=== PATIENT | female | born 1940 | race Caucasian/White ===

== ENCOUNTER 2022-01-16 16:06 | Inpatient (IN) ==
[2022-01-16 17:05] LABS: Basophils # (auto) 0.06 K/uL (0-0.2); Basophils % (auto) 0.7 %; Eosinophils # (auto) 0.14 K/uL (0-0.50); Eosinophils % (auto) 1.6 %; Hematocrit (blood only) 35.3 % (34.1-44.9); Hemoglobin 11.9 g/dl (12.0-16.0); Immature Granulocytes # (auto) 0.04 K/uL (0.00-0.02); Immature Granulocytes % (auto) 0.5 %; Lymphocytes # (auto) 0.89 K/uL (1.2-3.4); Lymphocytes % (auto) 10.2 %; Mean Corpuscular Hemoglobin 32.4 pg (25.0-34.0); Mean Corpuscular Hgb Conc 33.7 g/dL (32.0-36.0); Mean Corpuscular Volume 96.2 fL (80.0-100.0); Mean Platelet Volume 10.1 fL (9.4-12.3); Monocytes # (auto) 0.84 K/uL (0.24-0.82); Monocytes % (auto) 9.6 %; Neutrophils # (auto) 6.74 K/uL (1.4-6.5); Neutrophils % (auto) 77.4 %; Platelet Count 281 K/uL (130-400); RDW Coefficient of Variation 13.3 % (11.5-14.5); RDW Standard Deviation 47.7 fL (36.4-46.3); Red Blood Count 3.67 M/uL (3.93-5.22); White Blood Count 8.71 K/ul (4.8-10.8)
[2022-01-16 17:26] LABS: Albumin Globulin Ratio 0.8 (0.9-2); Albumin Level 3.5 gm/dl (3.4-5.0); BUN Creatinine Ratio 19.3 (10-20); Bilirubin,Total 1.4 mg/dl (0.2-1.0); Calcium 9.3 mg/dl (8.5-10.1); Creatinine Clr Calc Pharmacy 77.7 ml/min; Est GFR (African American) 99.4 ml/min; Est GFR (Non-African American) 85.7 ml/min; Globulin 4.4 gm/dl (2.5-4.0); Potassium 3.7 mmol/L (3.5-5.1); Total Protein 7.9 gm/dl (6.0-8.3)
--- NOTE | 2022-01-16 18:55 | Emergency Department Note ---
Impression & Plan Abdominal pain ADMIT ED Provider Note HPI: The patient is an 81-year-old female who presents emergency department with a chief complaint of right lower quadrant abdominal pain. Patient states that her pain is been constant for the past several days. Patient mentioned the symptoms to her primary care doctor's office and an outpatient CT scan of the abdomen pelvis was ordered for her to be done today at [facility]. Patient states she was contacted and advised to come to the emergency department based off the results, patient is unsure however of what the results showed. On arrival here to the ED the patient is hemodynamically stable, she is in no acute distress on my initial evaluation and she is requesting to go home. Patient denies any vomiting, denies any diarrhea, denies any chest pain or shortness of breath. ROS: -GI: Right-sided abdominal pain. *10 point review systems was conducted and is otherwise negative unless stated a dena *Outpatient medications and allergy history reviewed PE: General: Alert HEENT: Normocephalic, trachea midline Eyes: Extraocular eye movement is intact, no scleral erythema Pulmonary: Clear to auscultation bilaterally, no wheezing Cardio: Regular rate and rhythm GI: Abdomen is soft, moderate tenderness to palpation in the area of the right lower quadrant without any guarding or rigidity : No suprapubic tenderness MSK: No evidence of trauma or malformation of the extremities, no edema Skin: No evidence of rash Neuro: Alert, no focal deficits Psychiatric: Cooperative cardiac monitor technician: - An order was placed for continuous cardiac monitoring - Patient was noted to be in sinus rhythm with a rate of 65 Interventions provided in ED: -IV Zosyn Medical Decision Making: Patient presented to the emergency department with some right-sided abdominal pain for the past several days, she had outpatient CT imaging done today at [facility]. Patient does complain of some mild abdominal discomfort on arrival but does not have any signs or symptoms of peritonitis, no rigidity on exam. Lab work does not show any critical findings, no leukocytosis, slight anemia at 11.9, no critical electrolyte abnormalities, no transaminitis. Case management did obtain the outpatient CT abdomen and pelvis interpretation for me and I was able to review it, there is concern for possibility of a ileocecal stricture with questionable mass in this location versus distention or inflammation, also mentions a mildly distended appendix with wall thickening, early appendicitis could not be excluded. Surgical consult was therefore recommended and this is why the patient was referred to the emergency room. I did consult general surgery and the patient was evaluated at the bedside by JOSE Gillette, and case was staffed with the on-call attending physician, Dr. Dickson. At this time plan will be for admission to the hospitalist service with initiation of IV antibiotics, possibility exists that the patient may require colonoscopy prior to this procedure being performed if determined necessary secondary to rule out a mass is the source of the stricture near the i leocecal junction. Patient is in agreement for admission and she was admitted to the hospitalist [facility] through [facility] in stable condition for subspecialty consultation and further care. Diagnosis: 1. Right lower quadrant abdominal pain, acute 2. Possible early acute appendicitis on CT imaging 3. 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 Hiatal hernia Hypertension Hypothyroidism Migraine HX Surgical History History of adenoidectomy History of ankle surgery REMOVAL BONE CHIP History of eyelid surgery History of tonsillectomy History of total knee replacement R/L Nausea and vomiting after administration of anesthetic agent Social History Smoking Status: Never smoker Second Hand Exposure: Yes ( A CHILD); Hx Alcohol Use: No Hx Substance Use: No Preferred Language: Bangladeshi Communication Ability: Effective Health Care Social Worker Required: No Beliefs That Will Affect Care: None Current Living Situation: Alone Feels Safe at Home: Yes Assistive Devices: Cane and Glasses Allergies Allergies Allergy/AdvReac Type Severity Reaction Status Date / Time Sulfa (Sulfonamide Allergy Severe RASH, FELT Verified 12/28/19 07:26 Antibiotics) ILL Home Meds Home Medications Medication Instructions Recorded Confirmed atenolol 50 mg tablet 50 mg PO QAM 12/17/19 01/16/22 cholecalciferol (vitamin D3) 10 10 mcg PO QAM 12/17/19 01/16/22 mcg (400 unit) capsule (Vitamin D3) lisinopril 40 mg tablet 40 mg PO HS 12/17/19 01/16/22 ascorbic acid (vitamin C) 500 mg 500 mg PO DAILY 01/16/22 01/16/22 tablet (Vitamin C) ferrous sulfate 325 mg (65 mg 325 mg PO Q OTHER DAY 01/16/22 01/16/22 iron) tablet levothyroxine 112 mcg tablet 112 mcg PO DAILY 01/16/22 01/16/22 Results & Data (ED) Vital Signs Vital Signs - 24 hr 01/16/22 16:18 01/16/22 18:40 01/16/22 20:59 Temperature 36.4 C L Temperature Source Temporal Artery Scan Pulse Rate 73 Pulse Rate [Apical] 76 66 Pulse Rhythm Regular Pulse Rhythm [Apical] Regular Pulse Strength Normal Pulse Strength [Apical] Normal Respiratory Rate 16 16 18 Respiratory Effort / Characteristics Non-Labored Spontaneous Non-Labored Non-Labored Spontaneous Respiratory Depth Normal Normal Normal Respiratory Pattern Regular Regular Blood Pressure 175/84 H Blood Pressure [Left Arm] 162/85 H 161/80 H Blood Pressure Mean 114 Blood Pressure Mean [Left Arm] 110 107 Blood Pressure Position [Left Arm] Lying Semi-fowlers Pulse Oximetry 98 95 98 Oxygen Delivery Method Room Air Room Air Room Air Sepsis Recent Fever Within 48 Hours No Sepsis New/Unexplained Change in Mental Status No Sepsis Action Taken by Nursing No Action Required 01/16/22 22:00 01/16/22 22:14 Temperature Temperature Source Pulse Rate 63 Pulse Rate [Apical] 63 Pulse Rhythm Pulse Rhythm [Apical] Regular Pulse Strength Pulse Strength [Apical] Normal Respiratory Rate 18 18 Respiratory Effort / Characteristics Non-Labored Spontaneous Respiratory Depth Normal Respiratory Pattern Regular Blood Pressure 146/88 H Blood Pressure [Left Arm] 146/88 H Blood Pressure Mean Blood Pressure Mean [Left Arm] 107 Blood Pressure Position [Left Arm] Semi-fowlers Pulse Oximetry 97 97 Oxygen Delivery Method Room Air Room Air Sepsis Recent Fever Within 48 Hours Sepsis New/Unexplained Change in Mental Status Sepsis Action Taken by Nursing Laboratory Data Result diagrams: 01/16/22 16:51 01/16/22 16:51 Lab Results 01/16/22 01/16/22 01/16/22 Range/Units 16:51 16:51 16:51 WBC 8.71 (4.8-10.8) K/ul RBC 3.67 L (3.93-5.22) M/uL Hgb 11.9 L (12.0-16.0) g/dl Hct 35.3 (34.1-44.9) % MCV 96.2 (80.0-100.0) fL MCH 32.4 (25.0-34.0) pg MCHC 33.7 (32.0-36.0) g/dL RDW Std Deviation 47.7 H (36.4-46.3) fL RDW Coeff of Kelley 13.3 (11.5-14.5) % Plt Count 281 (130-400) K/uL MPV 10.1 (9.4-12.3) fL Immature Gran % (Auto) 0.5 % Neut % (Auto) 77.4 % Lymph % (Auto) 10.2 % [place] % (Auto) 9.6 % Eos % (Auto) 1.6 % Baso % (Auto) 0.7 % Neut # (Auto) 6.74 H (1.4-6.5) K/uL Lymph # (Auto) 0.89 L (1.2-3.4) K/uL [place] # (Auto) 0.84 H (0.24-0.82) K/uL Eos # (Auto) 0.14 (0-0.50) K/uL Baso # (Auto) 0.06 (0-0.2) K/uL Immature Gran # (Auto) 0.04 H (0.00-0.02) K/uL Sodium 132 L (136-145) mmol/L Potassium 3.7 (3.5-5.1) mmol/L Chloride 100 (98-107) mmol/L Carbon Dioxide 23 (21-32) mmol/L Anion Gap 9 (3-11) BUN 11 (6-23) mg/dl Creatinine 0.57 L (0.6-1.2) mg/dl Est Cr Clr Drug Dosing 77.7 ml/min Est GFR ( Amer) 99.4 ml/min Est GFR (Non-Af Amer) 85.7 ml/min BUN/Creatinine Ratio 19.3 (10-20) Glucose 81 (70-99(Fasting)) mg/dl Calcium 9.3 (8.5-10.1) mg/dl Magnesium 1.7 (1.7-2.4) mg/dl Total Bilirubin 1.4 H (0.2-1.0) mg/dl AST 23 (13-39) U/L ALT 16 (7-52) U/L Alkaline Phosphatase 97 (34-104) U/L Total Protein 7.9 (6.0-8.3) gm/dl Albumin 3.5 (3.4-5.0) gm/dl Globulin 4.4 H (2.5-4.0) gm/dl Albumin/Globulin Ratio 0.8 L (0.9-2) Lipase 16 (11-82) U/L SARS-CoV-2, RNA, NAAT (NEGATIVE) 01/16/22 Range/Units 19:31 WBC (4.8-10.8) K/ul RBC (3.93-5.22) M/uL Hgb (12.0-16.0) g/dl Hct (34.1-44.9) % MCV (80.0-100.0) fL MCH (25.0-34.0) pg MCHC (32.0-36.0) g/dL RDW Std Deviation (36.4-46.3) fL RDW Coeff of Kelley (11.5-14.5) % Plt Count (130-400) K/uL MPV (9.4-12.3) fL Immature Gran % (Auto) % Neut % (Auto) % Lymph % (Auto) % [place] % (Auto) % Eos % (Auto) % Baso % (Auto) % Neut # (Auto) (1.4-6.5) K/uL Lymph # (Auto) (1.2-3.4) K/uL [place] # (Auto) (0.24-0.82) K/uL Eos # (Auto) (0-0.50) K/uL Baso # (Auto) (0-0.2) K/uL Immature Gran # (Auto) (0.00-0.02) K/uL Sodium (136-145) mmol/L Potassium (3.5-5.1) mmol/L Chloride (98-107) mmol/L Carbon Dioxide (21-32) mmol/L Anion Gap (3-11) BUN (6-23) mg/dl Creatinine (0.6-1.2) mg/dl Est Cr Clr Drug Dosing ml/min Est GFR ( Amer) ml/min Est GFR (Non-Af Amer) ml/min BUN/Creatinine Ratio (10-20) Glucose (70-99(Fasting)) mg/dl Calcium (8.5-10.1) mg/dl Magnesium (1.7-2.4) mg/dl Total Bilirubin (0.2-1.0) mg/dl AST (13-39) U/L ALT (7-52) U/L Alkaline Phosphatase (34-104) U/L Total Protein (6.0-8.3) gm/dl Albumin (3.4-5.0) gm/dl Globulin (2.5-4.0) gm/dl Albumin/Globulin Ratio (0.9-2) Lipase (11-82) U/L SARS-CoV-2, RNA, NAAT NEGATIVE (NEGATIVE) Administered Medications Sodium Chloride (Nss 1000ml) 1,000 mls @ 60 mls/hr IV .[id number] ONE Stop: 01/17/22 13:18 Last Admin: 01/16/22 20:55 Dose: 60 mls/hr Documented By: JOSEPH Discontinued Medications Piperacillin Sod/Tazobactam (Sod 3.375 gm/ Dextrose) 100 ml in 115 mls @ 230 mls/hr IV NOW STA Stop: 01/16/22 20:16 Last Infusion: 01/16/22 21:30 Dose: 0 mls/hr Documented By: Admin: 01/16/22 20:56 Dose: 230 mls/hr Documented By: JOSEPH Lisinopril (Lisinopril 40 Mg Tab) 40 mg PO NOW STA Stop: 01/16/22 19:51 Last Admin: 01/16/22 20:55 Dose: 40 mg Documented By: JOSEPH Imaging Data Radiologist's Impression: Chest X-Ray 01/16/22 19:51 XR chest 1V portable HISTORY: hyponatremia COMPARISON: None. FINDINGS: No pneumothorax. No pleural effusions. The cardiac silhouette is mildly enlarged. The upper lung zones are clear. No evidence for pulmonary edema. Bibasilar interstitial thickening is noted. Suspect a small hiatus hernia. Small patchy densities within the left lung base. Advanced degenerative changes within the bilateral shoulders. Mild S-shaped scoliosis of the thoracolumbar spine. Calcification within the aortic knob. Mild gaseous distention of the visualized bowel within the upper abdomen. IMPRESSION: 1. Mild cardiomegaly. No evidence for pulmonary edema. 2. Small patchy density at the left lung base which may represent atelectasis or developing pneumonia. 3. Possible small hiatus hernia. 5. Mild gaseous distention of the visualized bowel within the upper abdomen. ACT 112: Negative or not required by law. Electronically signed by: Edwardo Cheung M.D. 01/16/2022 9:06 PM Discharge Plan Visit Data Chief Complaint: Abdominal Pain Stated Complaint: REFERRED BY DOC, PAIN IN ABDOMIN ED Provider: Ceferino Dubose Discharge Problem: Abdominal pain Patient Disposition: Admitted As Inpatient Forms [facility] Prescriptions Prescriptions: No Action lisinopril 40 mg Tablet 40 mg PO HS atenolol 50 mg Tablet 50 mg PO QAM cholecalciferol (vitamin D3) [Vitamin D3] 10 mcg (400 unit) Capsule 10 mcg PO QAM ascorbic acid (vitamin C) [Vitamin C] 500 mg Tablet 500 mg PO DAILY ferrous sulfate 325 mg (65 mg iron) Tablet 325 mg PO Q OTHER DAY levothyroxine 112 mcg tablet 112 mcg PO DAILY Referrals Referrals: PCP,NO [Physician] - : Abdominal pain Qualifiers: Abdominal location: right lower quadrant Qualified Code(s): R10.31 - Right lower quadrant pain
--- NOTE | 2022-01-16 19:43 | Surgery Consultation ---
Date of Consultation January 16, 2022 Assessment & Plan (1) Abdominal pain: The etiology of patient's abdominal pain has not been clearly delineated at this point: Although acute appendicitis has not entirely been excluded, there is concern the patient may have an underlying cecal mass on CT scan. We therefore recommend proceeding as follows: Admit patient to hospital (she will be admitted by the [facility] service) Provide IV fluid for hydration Provide analgesics Provide antiemetics Follow serial labs Initiate antibiotics. Zosyn has been initiated by the treating clinician in the emergency department Due to concerns for potential cecal mass, I feel a gastroenterology cons ultation is warranted with the potential of having the patient undergo a colonoscopy prior to entertaining any surgical intervention Once gastroenterology input has been obtained, will determine if patient will undergo colonoscopy and following results of this we will determine if and what type of operation patient may benefit from Additional recommendations will be made after GI consultation and potential colonoscopy is being performed History of Present Illness Reason for Consultation: Abdominal pain History of Present Illness This is an 81-year-old female who presented to [facility] emergency department at the recommendation of her primary care provider due to concern for acute appendicitis. The patient notes that she is having on and off abdominal pain for approximately 5 days. With her abdominal pain the patient does not report any modifying factors. She does not report any nausea or vomiting. She denies any fevers, shakes, or chills. She has had prior abdominal surgeries in the form of a ventral hernia repair utilizing mesh. Be cause her symptomatology persisted she was seen by her primary care team where an outpatient CT scan was performed with results noted below. Because of these results she was referred to the emergency department. The patient does not report any weight loss. She does not report any decreased appetite, and in fact at the time of my interview reported that she was hungry. The patient did undergo a CT scan of the abdomen pelvis which was performed at [facility]. This CAT scan was reviewed by myself. This did show some fat stranding and fluid in the right pelvis around the cecal area likely due to inflammatory changes. There is a focal narrowing at the area of the cecum near the ileocecal junction which was felt to be potentially related to incomplete distention or inflammation, however an underlying neoplastic process was difficult to exclude and a follow-up colonoscopy was recommended. There was a mildly distended appendix with some wall thickening. An early a ppendicitis could not be excluded on the study. Patient did have labs performed which included a CBC were white blood cell count was normal. Her hemoglobin was 11.9 with a normal hematocrit. Platelet count was within normal range. Chemistry profile showed sodium was 132. Potassium and BUN were normal. Her creatinine was nonelevated at 0.57. Patient did have a slight elevation of her bilirubin at 1.4. Her transaminases and alkaline phosphatase were nonelevated. Lipase was nonelevated. The patient reports that she leads an active lifestyle. She notes that she can easily walk up 2 flights of steps without any chest pain or shortness of breath. At the time of my interview she was resting comfortably in bed and she was in no distress. She did note upon my arrival that her pain had nearly completely resolved. Allergies Allergy/AdvReac Type Severity Reaction Status Date / Time Sulfa (Sulfonamide Allergy Severe RASH, FELT Verified 12/28/19 07:26 Antibiotics) ILL Home Medications Medication Instructions Recorded Confirmed Type atenolol 50 mg tablet 50 mg PO QAM 12/17/19 01/16/22 History cholecalciferol (vitamin D3) 10 10 mcg PO QAM 12/17/19 01/16/22 History mcg (400 unit) capsule (Vitamin D3) lisinopril 40 mg tablet 40 mg PO HS 12/17/19 01/16/22 History ascorbic acid (vitamin C) 500 mg 500 mg PO DAILY 01/16/22 01/16/22 History tablet (Vitamin C) ferrous sulfate 325 mg (65 mg 325 mg PO Q OTHER DAY 01/16/22 01/16/22 History iron) tablet levothyroxine 112 mcg tablet 112 mcg PO DAILY 01/16/22 01/16/22 History Patient History Medical History Arthritis 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 Hiatal hernia Hypertension Hypothyroidism Migraine HX Surgical History History of adenoidectomy History of ankle surgery REMOVAL BONE CHIP History of eyelid surgery History of tonsillectomy History of total knee replacement R/L Nausea and vomiting after administration of anesthetic agent Social History (Reviewed 01/16/22 @ 20:09 by LAYLA Vidal Smoking Status: Never smoker Second Hand Exposure: Yes ( A CHILD); Hx Alcohol Use: No Hx Substance Use: No Preferred Language: Cypriot Communication Ability: Effective Fish Bin Tender Required: No Beliefs That Will Affect Care: None Current Living Situation: Alone Other Information That Helps Us Care for You: No Feels Safe at Home: Yes Safety Concerns: Feels Safe At This Time Assistive Devices: Cane, Glasses and Hearing Aid - Bilateral Review of Systems Constitutional: no fever and no chills Eyes: no eye pain Ear, Nose, Mouth, Throat: no ear pain Respiratory: no cough and no dyspnea Cardiovascular: no chest pain Gastrointestinal: + abdominal pain (Resolved at the time of my exam); no nausea and no vomiting Genitourinary: no dysuria Musculoskeletal: no back pain Integumentary: no rash Neurologic: no localized weakness Physical Exam Constitutional: WD/WN, vitals as above Eyes: no conjunctival abnormality Wears glasses ENMT: Ears: no hearing impairment and no external ear abnormality Mouth: no oropharynx abnormality Neck: trachea midline Respiratory: normal respiratory effort; no respiratory distress and no labored breathing Cardiovascular: Rate/Rhythm: regular rate and regular rhythm Gastrointestinal (Abdomen): Abdomen is soft, nonrigid, nondistended. There is no rebound tenderness or guarding. The patient had minimal pain with palpation in the right lower quadrant the time of my exam. Patient did have a well-healed incision near her umbilicus from previous herniorrhaphy Musculoskeletal: No calf tenderness Skin: no rashes Neurologic: moves all extremities Psychiatric: A+Ox3, euthymic affect Results & Data ([facility]) Vital Signs (Past 12 Hours) Vital Signs Temp Pulse Pulse Resp BP BP Pulse Ox 01/16/22 18:40 76 16 162/85 H 95 01/16/22 16:18 36.4 C L 73 16 175/84 H 98 O2 Del Method 01/16/22 18:40 Room Air 01/16/22 16:18 Room Air PG Care Time/CCT Total # of Minutes Spent Total Time Spent with Patient: Total time spent is greater than 50% in coordination of care (as documented) at patient's floor/unit and/or counseling patient: Coding Level of Care Code 34196 Inpt Consult Level 5 Diagnoses Abdominal pain R10.9
[2022-01-16] MEDS ORDERED: PIPERACILLIN/TAZOBACTAM 3.375 GM in DEXTROSE 5% 100 ML/100 ML BAG IV STA (19:47)
[2022-01-16] MEDS ORDERED: lisinopril 40 MG TAB PO STA (19:50)
[2022-01-16] MEDS ORDERED: SODIUM CHLORIDE 0.9% 1000ML 1,000 ML IV ONE (20:39)
--- NOTE | 2022-01-16 20:45 | History & Physical Report ---
Date of Service January 16, 2022 Assessment & Plan (1) Abdominal pain: Plan: Ileocecal abnormalities on CT rule out early appendicitis No sepsis for now Hypertensive urgency secondary to discomfort IPMN as per records monoclonal gammopathy, stable as per outpatient Hematology visit this year prediabetes, hemoglobin A1c of 5.9 last 2018 chronic anemia, hemoglobin better than baseline secondary to hemoconcentration congenital facial palsy Medical telemetry given elevated BP Analgesia facilitate nighttime lisinopril General surgery consultation Re: Possible appendicitis on CT (Patient already seen by provider at the ER. GI consultation recommended for possible colonoscopy. Continue antibiotics until appendicitis ruled out as per Surgery.) DVT prophylaxis with SCDs Re: Possible procedure Full code Case discussed with Dr. Mendez of GI. He recommends MiraLAX colonoscopy prep tonight. Patient requests for her nephew to be updated of developments. Mr. Caleb Lea, contact #[phone]. Text document was generated using Cell[employer] voice recognition software. It may contain grammatical or spelling errors. Kindly contact undersigned for clarification of any documentation item in question. History of Present Illness Chief Complaint: Abdominal pain, abnormal CAT scan Primary Care Provider: Gloria Monroy MD History obtained from patient, family, and records. Medical history significant for hypertension, IPMN as per records, monoclonal gammopathy, prediabetes, chronic anemia (baseline hemoglobin 10-11), congenital facial palsy. 6 days history of sudden onset achy right lower quadrant pain without nausea, vomiting, fever, chills. Voluntary weight loss by increased exercise. No recollection of recent trauma. No prior episodes. Patient seen at PCPs office today. Outpatient CT abdomen pelvis showed : 1. Fat stranding and fluid in the right pelvis around the cecal area, likely sequelae of inflammatory changes. Focal abdominal wall laxity in this region with probable hernia. Focal narrowing of the cecum near the ileocecal junction may be related to incomplete distention or inflammation. Underlying neoplastic process is difficult to exclude. Follow-up colonoscopy recommended after resolution of acute symptoms to exclude any underlying neoplasm. 2. Mildly distended appendix with wall thickening. Early appendicitis cannot be excluded. Surgery consult recommended. Patient directed to ER for evaluation. IV Zosyn administered at the ER. Medical History as above No previous colonoscopies. Outpatient stool tests have been negative as per patient. Surgical History : Knee replacement, hernia surgery, ankle surgery, cataract surgery, eyelid surgery Family History : Heart disease; no colon cancer Personal/Social history : non-smoker, no EtOH intake, retired schoolteacher Allergies Allergy/AdvReac Type Severity Reaction Status Date / Time Sulfa (Sulfonamide Allergy Severe RASH, FELT Verified 12/28/19 07:26 Antibiotics) ILL Home Medications Medication Instructions Recorded Confirmed Type atenolol 50 mg tablet 50 mg PO QAM 12/17/19 01/16/22 History cholecalciferol (vitamin D3) 10 10 mcg PO QAM 12/17/19 01/16/22 History mcg (400 unit) capsule (Vitamin D3) lisinopril 40 mg tablet 40 mg PO HS 12/17/19 01/16/22 History ascorbic acid (vitamin C) 500 mg 500 mg PO DAILY 01/16/22 01/16/22 History tablet (Vitamin C) ferrous sulfate 325 mg (65 mg 325 mg PO Q OTHER DAY 01/16/22 01/16/22 History iron) tablet levothyroxine 112 mcg tablet 112 mcg PO DAILY 01/16/22 01/16/22 History Past Med/Surg History Medical History (Updated 01/16/22 @ 22:45 by Ceferino Dubose DO) Arthritis 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 Hiatal hernia Hypertension Hypothyroidism Migraine HX Surgical History History of adenoidectomy History of ankle surgery REMOVAL BONE CHIP History of eyelid surgery History of tonsillectomy History of total knee replacement R/L Nausea and vomiting after administration of anesthetic agent Social History Smoking Status: Never smoker Second Hand Exposure: Yes ( A CHILD); Hx Alcohol Use: No Hx Substance Use: No Preferred Language: Irish Communication Ability: Effective Hand Collator Required: No Beliefs That Will Affect Care: None Current Living Situation: Alone Other Information That Helps Us Care for You: No Feels Safe at Home: Yes Safety Concerns: Feels Safe At This Time Assistive Devices: Cane, Glasses and Hearing Aid - Bilateral Review of Systems Review of Systems: As per HPI, all other systems reviewed and negative Physical Exam Physical Exam: GENERAL: Comfortable, slightly anxious, pleasant, slightly hard of hearing, no respiratory distress SKIN: Normal color, warm HEENT: [place] palpebral conjunctivae, no ptosis, chronic facial palsy right, dry buccal mucosa NECK : Supple, no tenderness CHEST : CTA, no tenderness HEART : RRR, some ectopic beats, no obvious murmurs ABDOMEN: Some distention, RLQ tenderness EXTREMITIES : Minimal LE swelling, no LE tenderness, no other conspicuous deformities noted NEUROLOGIC : Coherent, chronic facial asymmetry, no other gross focality Results & Data Results & Data ([facility]) Vital Signs (Past 12 Hours) Vital Signs Temp Pulse Pulse Resp BP BP Pulse Ox 01/16/22 18:40 76 16 162/85 H 95 01/16/22 16:18 36.4 C L 73 16 175/84 H 98 O2 Del Method 01/16/22 18:40 Room Air 01/16/22 16:18 Room Air Laboratory Results Laboratory Results WBC 8.71 K/ul (4.8-10.8) 01/16/22 16:51 RBC 3.67 M/uL (3.93-5.22) L 01/16/22 16:51 Hgb 11.9 g/dl (12.0-16.0) L 01/16/22 16:51 Hct 35.3 % (34.1-44.9) 01/16/22 16:51 MCV 96.2 fL (80.0-100.0) 01/16/22 16:51 MCH 32.4 pg (25.0-34.0) 01/16/22 16:51 MCHC 33.7 g/dL (32.0-36.0) 01/16/22 16:51 RDW Std Deviation 47.7 fL (36.4-46.3) H 01/16/22 16:51 RDW Coeff of Kelley 13.3 % (11.5-14.5) 01/16/22 16:51 Plt Count 281 K/uL (130-400) 01/16/22 16:51 MPV 10.1 fL (9.4-12.3) 01/16/22 16:51 Immature Gran % (Auto) 0.5 % 01/16/22 16:51 Neut % (Auto) 77.4 % 01/16/22 16:51 Lymph % (Auto) 10.2 % 01/16/22 16:51 Holt % (Auto) 9.6 % 01/16/22 16:51 Eos % (Auto) 1.6 % 01/16/22 16:51 Baso % (Auto) 0.7 % 01/16/22 16:51 Neut # (Auto) 6.74 K/uL (1.4-6.5) H 01/16/22 16:51 Lymph # (Auto) 0.89 K/uL (1.2-3.4) L 01/16/22 16:51 Holt # (Auto) 0.84 K/uL (0.24-0.82) H 01/16/22 16:51 Eos # (Auto) 0.14 K/uL (0-0.50) 01/16/22 16:51 Baso # (Auto) 0.06 K/uL (0-0.2) 01/16/22 16:51 Immature Gran # (Auto) 0.04 K/uL (0.00-0.02) H 01/16/22 16:51 Sodium 132 mmol/L (136-145) L 01/16/22 16:51 Potassium 3.7 mmol/L (3.5-5.1) 01/16/22 16:51 Chloride 100 mmol/L (98-107) 01/16/22 16:51 Carbon Dioxide 23 mmol/L (21-32) 01/16/22 16:51 Anion Gap 9 (3-11) 01/16/22 16:51 BUN 11 mg/dl (6-23) 01/16/22 16:51 Creatinine 0.57 mg/dl (0.6-1.2) L 01/16/22 16:51 Est Cr Clr Drug Dosing 77.7 ml/min 01/16/22 16:51 Est GFR ( Amer) 99.4 ml/min 01/16/22 16:51 Est GFR (Non-Af Amer) 85.7 ml/min 01/16/22 16:51 BUN/Creatinine Ratio 19.3 (10-20) 01/16/22 16:51 Glucose 81 mg/dl (70-99(Fasting)) 01/16/22 16:51 Calcium 9.3 mg/dl (8.5-10.1) 01/16/22 16:51 Total Bilirubin 1.4 mg/dl (0.2-1.0) H 01/16/22 16:51 AST 23 U/L (13-39) 01/16/22 16:51 ALT 16 U/L (7-52) 01/16/22 16:51 Alkaline Phosphatase 97 U/L (34-104) 01/16/22 16:51 Total Protein 7.9 gm/dl (6.0-8.3) 01/16/22 16:51 Albumin 3.5 gm/dl (3.4-5.0) 01/16/22 16:51 Globulin 4.4 gm/dl (2.5-4.0) H 01/16/22 16:51 Albumin/Globulin Ratio 0.8 (0.9-2) L 01/16/22 16:51 Lipase 16 U/L (11-82) 01/16/22 16:51 SARS-CoV-2, RNA, NAAT NEGATIVE (NEGATIVE) 01/16/22 19:[address] abdomen pelvis as per HPI EKG as per my interpretation :Rate 55, sinus bradycardia with PACs, LAD, LAFB, no ischemia
[2022-01-16] MEDS ORDERED: MoRPHine SULFATE 2 MG/ML CARP IV PRN (21:02)
[2022-01-16] MEDS ORDERED: PROMETHAZINE HCL 12.5 MG in SODIUM CHLORIDE 0.9% 50 ML IV PRN (21:02)
[2022-01-16] MEDS ORDERED: oxyCODONE HCL IR 5 MG TAB (IMMEDIATE RELEASE) PO PRN (21:02)
[2022-01-16] MEDS ORDERED: LORazepam 0.5 MG TAB PO PRN (21:02)
[2022-01-16] MEDS ORDERED: ACETAMINOPHEN 325 MG TAB PO PRN (21:02)
[2022-01-16] MEDS ORDERED: POLYETHYLENE (MIRALAX) 17 GM PACK PO STA (21:06)
--- NOTE | 2022-01-16 21:08 | XRay Report ---
XR chest 1V portable HISTORY: hyponatremia COMPARISON: None. FINDINGS: No pneumothorax. No pleural effusions. The cardiac silhouette is mildly enlarged. The upper lung zones are clear. No evidence for pulmonary edema. Bibasilar interstitial thickening is noted. S uspect a small hiatus hernia. Small patchy densities within the left lung base. Advanced degenerative changes within the bilateral shoulders. Mild S-shaped scoliosis of the thoracolumbar spine. Calcific ation within the aortic knob. Mild gaseous distention of the visualized bowel within the upper abdome n. IMPRESSION: 1. Mild cardiomegaly. No evidence for pulmonary edema. 2. Small patchy density at the left lung base which may represent atelectasis or developing pneumonia . 3. Possible small hiatus hernia. 5. Mild gaseous distention of the visualized bowel within the upper abdomen. ACT 112: Negative or not required by law. Electronically signed by: Edwardo Cheung M.D. 01/16/2022 9:06 PM
[2022-01-16] MEDS: MAGNESIUM SULFATE / D5W 1 GM/100 ML BAG IV SCH (23:14)
[2022-01-17] MEDS: MAGNESIUM SULFATE / D5W 1 GM/100 ML BAG IV SCH (00:42)
[2022-01-17] MEDS: PIPERACILLIN/TAZOBACTAM 3.375 GM in DEXTROSE 5% 100 ML IV SCH ×3 (01:46→20:48)
[2022-01-17] MEDS: LACTATED RINGER'S 1,000 ML IV SCH ×2 (05:21→20:44)
[2022-01-17] MEDS: LEVOTHYROXINE SODIUM 112 MCG TABLET PO SCH (05:32)
[2022-01-17 07:10] LABS: Basophils # (auto) 0.06 K/uL (0-0.2); Basophils % (auto) 0.8 %; Eosinophils % (auto) 2.8 %; Hematocrit (blood only) 34.9 % (34.1-44.9); Hemoglobin 11.7 g/dl (12.0-16.0); Immature Granulocytes # (auto) 0.03 K/uL (0.00-0.02); Immature Granulocytes % (auto) 0.4 %; Lymphocytes # (auto) 0.61 K/uL (1.2-3.4); Lymphocytes % (auto) 8.5 %; Mean Corpuscular Hemoglobin 32.5 pg (25.0-34.0); Mean Corpuscular Hgb Conc 33.5 g/dL (32.0-36.0); Mean Corpuscular Volume 96.9 fL (80.0-100.0); Mean Platelet Volume 10.5 fL (9.4-12.3); Monocytes # (auto) 0.88 K/uL (0.24-0.82); Monocytes % (auto) 12.2 %; Neutrophils # (auto) 5.42 K/uL (1.4-6.5); Neutrophils % (auto) 75.3 %; Platelet Count 274 K/uL (130-400); RDW Coefficient of Variation 13.2 % (11.5-14.5); RDW Standard Deviation 47.7 fL (36.4-46.3)
[2022-01-17 07:39] LABS: BUN Creatinine Ratio 16.7 (10-20); Creatinine Clr Calc Pharmacy 72.9 ml/min; Est GFR (African American) 97.7 ml/min; Est GFR (Non-African American) 84.3 ml/min; Potassium 3.5 mmol/L (3.5-5.1)
[2022-01-17] MEDS: ATENOLOL 50 MG TABLET PO SCH (08:22)
[2022-01-17] MEDS ORDERED: FERROUS SULFATE 325 MG TAB PO SCH (09:00)
--- NOTE | 2022-01-17 09:32 | Gastrointestinal Consultation ---
Date of Consultation January 17, 2022 Assessment & Plan (1) Abnormal finding on imagin81 year old female with abdominal pain (resolved) admitted with abnormal imaging showing fat stranding and fluid w/ focal narrowing of the cecum near the ileocecal junction and mildly distended appendix with wall thickening. General surgery evaluated patient and recommended she undergo colonoscopy prior to any surgical intervention. The patient has never had a colonoscopy and has previously refused colonoscopy, but is now agreeable to evaluation to rule out malignancy NPO Colonoscopy today Can continue antiemetics and analgesia PRN Would continue IV fluids for hydration ABX per General Surgery staff Thank you for allowing us to participate in the care of this patient. Please call with any acute changes, questions or concerns. Please see addendum below with additional recommendation from my supervising physician. Supervising Physician Co-Signing Physician Notes Colonoscopy for evaluation of abnl ct done yesterday - ? rlq hernia versus cecal mass. History of Present Illness Reason for Consultation: colonoscopy Requesting Physician: Vern Attending Physician: Suly Porras MD History of Present Illness 81 year old female with history of MGUS, HTN, hypothyroidism, gallstones, elevated LFTs who presented with abnormal CT scan. 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 Evaluated by her PCP for RLQ abd pain, OP CT scan was arranged. This was concerning for cecal changes, narrowing of the cecum at the IC junction and mild distention of the appendix with wall thickening. As early appendicis was unable to be ruled out, she was referred to the ED. Evaluated by gen surg staff who recommended colonoscopy evaluation. This AM, she notes she is feeling well. She denies any abdominal pain. This has since resolved since admission. She notes the pain she experienced that lead to the CT scan had been intermittent, and she believed related to a abdominal wall hernia. She notes she tolerated bowel prep last evening, having liquids stools. Did not see any black or bloody BM with prep. CTAP 2021: Fat stranding and fluid in the right pelvis around the cecal area, likely sequelae of inflammatory changes. Focal abdominal wall laxity in this region with probable hernia. Focal narrowing of the cecum near the ileocecal junction may be related to incomplete distention or inflammation. Underlying neoplastic process is difficult to exclude. Follow-up colonoscopy recommended after resolution of acute symptoms to exclude any underlying neoplasm. Mildly distended appendix with wall thickening. Early appendicitis cannot be excluded. Surgery consult recommended.. Additional findings described above. MRCP 2020: Large 8.8 cm uterine fibroid.Biliary caliber is within normal limits for age. No choledocholithiasis or obstructing process identified.large hiatal hernia. 8 mm pancreatic cyst, possibly a side-branch IPMN. ABD US 2020:LIVER: Normal echogenicity. No focal lesion.BILE DUCTS: No intrahepatic or extrahepatic duct dilatation. The common bile duct measures 6 mm.GALLBLADDER: Cholelithiasis. No gallbladder wall thickening or pericholecys tic fluid. EGD/Colonoscopy: none Allergies Allergy/AdvReac Type Severity Reaction Status Date / Time Sulfa (Sulfonamide Allergy Severe RASH, FELT Verified 12/28/19 07:26 Antibiotics) ILL Home Medications Medication Instructions Recorded Confirmed Type atenolol 50 mg tablet 50 mg PO QAM 12/17/19 01/16/22 History cholecalciferol (vitamin D3) 10 10 mcg PO QAM 12/17/19 01/16/22 History mcg (400 unit) capsule (Vitamin D3) lisinopril 40 mg tablet 40 mg PO HS 12/17/19 01/16/22 History ascorbic acid (vitamin C) 500 mg 500 mg PO DAILY 01/16/22 01/16/22 History tablet (Vitamin C) ferrous sulfate 325 mg (65 mg 325 mg PO Q OTHER DAY 01/16/22 01/16/22 History iron) tablet levothyroxine 112 mcg tablet 112 mcg PO DAILY 01/16/22 01/16/22 History Patient History Medical History (Updated 01/17/22 @ 09:29 by GABE Yung) Arthritis 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 Hiatal hernia Hypertension Hypothyroidism Migraine HX Surgical History History of adenoidectomy History of ankle surgery REMOVAL BONE CHIP History of eyelid surgery History of tonsillectomy History of total knee replacement R/L Nausea and vomiting after administration of anesthetic agent Social History Smoking Status: Never smoker Second Hand Exposure: Yes ( A CHILD); Hx Alcohol Use: No Hx Substance Use: No Preferred Language: Macedonian Communication Ability: Effective Customer Services Manager Required: No Beliefs That Will Affect Care: None Current Living Situation: Alone Other Information That Helps Us Care for You: No Feels Safe at Home: Yes Safety Concerns: Feels Safe At This Time Assistive Devices: Cane, Glasses and Hearing Aid - Bilateral Review of Systems Review of Systems: All systems reviewed & are unremarkable except as noted in HPI & below Physical Exam Constitutional: WD/WN, vitals as above Respiratory: normal respiratory effort; no respiratory distress Cardiovascular: Rate/Rhythm: regular rate and regular rhythm Gastrointestinal (Abdomen): Inspection/Auscultation: abdomen normal to inspection Percussion/Palpation: abdomen soft; abdomen nontender, no guarding and abdomen not rigid Skin: no rashes, warm and dry Results & Data ([facility]) Vital Signs (Past 12 Hours) Vital Signs Temp Pulse Pulse Pulse Resp BP BP 01/17/22 08:03 36.6 C 69 20 130/76 01/17/22 07:03 66 01/17/22 03:00 36.4 C L 61 20 151/79 H 01/16/22 23:00 36.6 C 73 16 176/83 H 01/16/22 22:14 63 18 146/88 H 01/16/22 22:00 63 18 146/88 H Pulse Ox O2 Del Method 01/17/22 08:03 97 Room Air 01/17/22 07:03 01/17/22 03:00 96 Room Air 01/16/22 23:00 95 Room Air 01/16/22 22:14 97 Room Air 01/16/22 22:00 97 Room Air Laboratory Results 01/17/22 01/17/22 01/16/22 Range/Units 06:12 06:12 19:31 WBC 7.20 (4.8-10.8) K/ul RBC 3.60 L (3.93-5.22) M/uL Hgb 11.7 L (12.0-16.0) g/dl Hct 34.9 (34.1-44.9) % MCV 96.9 (80.0-100.0) fL MCH 32.5 (25.0-34.0) pg MCHC 33.5 (32.0-36.0) g/dL RDW Std Deviation 47.7 H (36.4-46.3) fL RDW Coeff of Kelley 13.2 (11.5-14.5) % Plt Count 274 (130-400) K/uL MPV 10.5 (9.4-12.3) fL Immature Gran % (Auto) 0.4 % Neut % (Auto) 75.3 % Lymph % (Auto) 8.5 % Moca % (Auto) 12.2 % Eos % (Auto) 2.8 % Baso % (Auto) 0.8 % Neut # (Auto) 5.42 (1.4-6.5) K/uL Lymph # (Auto) 0.61 L (1.2-3.4) K/uL Moca # (Auto) 0.88 H (0.24-0.82) K/uL Eos # (Auto) 0.20 (0-0.50) K/uL Baso # (Auto) 0.06 (0-0.2) K/uL Immature Gran # (Auto) 0.03 H (0.00-0.02) K/uL Sodium 133 L (136-145) mmol/L Potassium 3.5 (3.5-5.1) mmol/L Chloride 101 (98-107) mmol/L Carbon Dioxide 23 (21-32) mmol/L Anion Gap 9 (3-11) BUN 10 (6-23) mg/dl Creatinine 0.60 (0.6-1.2) mg/dl Est Cr Clr Drug Dosing 72.9 ml/min Est GFR ( Amer) 97.7 ml/min Est GFR (Non-Af Amer) 84.3 ml/min BUN/Creatinine Ratio 16.7 (10-20) Glucose 92 (70-99(Fasting)) mg/dl Calcium 9.0 (8.5-10.1) mg/dl Magnesium (1.7-2.4) mg/dl Total Bilirubin (0.2-1.0) mg/dl AST (13-39) U/L ALT (7-52) U/L Alkaline Phosphatase (34-104) U/L Total Protein (6.0-8.3) gm/dl Albumin (3.4-5.0) gm/dl Globulin (2.5-4.0) gm/dl Albumin/Globulin Ratio (0.9-2) Lipase (11-82) U/L SARS-CoV-2, RNA, NAAT NEGATIVE (NEGATIVE) 01/16/22 01/16/22 01/16/22 Range/Units 16:51 16:51 16:51 WBC 8.71 (4.8-10.8) K/ul RBC 3.67 L (3.93-5.22) M/uL Hgb 11.9 L (12.0-16.0) g/dl Hct 35.3 (34.1-44.9) % MCV 96.2 (80.0-100.0) fL MCH 32.4 (25.0-34.0) pg MCHC 33.7 (32.0-36.0) g/dL RDW Std Deviation 47.7 H (36.4-46.3) fL RDW Coeff of Kelley 13.3 (11.5-14.5) % Plt Count 281 (130-400) K/uL MPV 10.1 (9.4-12.3) fL Immature Gran % (Auto) 0.5 % Neut % (Auto) 77.4 % Lymph % (Auto) 10.2 % Moca % (Auto) 9.6 % Eos % (Auto) 1.6 % Baso % (Auto) 0.7 % Neut # (Auto) 6.74 H (1.4-6.5) K/uL Lymph # (Auto) 0.89 L (1.2-3.4) K/uL Moca # (Auto) 0.84 H (0.24-0.82) K/uL Eos # (Auto) 0.14 (0-0.50) K/uL Baso # (Auto) 0.06 (0-0.2) K/uL Immature Gran # (Auto) 0.04 H (0.00-0.02) K/uL Sodium 132 L (136-145) mmol/L Potassium 3.7 (3.5-5.1) mmol/L Chloride 100 (98-107) mmol/L Carbon Dioxide 23 (21-32) mmol/L Anion Gap 9 (3-11) BUN 11 (6-23) mg/dl Creatinine 0.57 L (0.6-1.2) mg/dl Est Cr Clr Drug Dosing 77.7 ml/min Est GFR ( Amer) 99.4 ml/min Est GFR (Non-Af Amer) 85.7 ml/min BUN/Creatinine Ratio 19.3 (10-20) Glucose 81 (70-99(Fasting)) mg/dl Calcium 9.3 (8.5-10.1) mg/dl Magnesium 1.7 (1.7-2.4) mg/dl Total Bilirubin 1.4 H (0.2-1.0) mg/dl AST 23 (13-39) U/L ALT 16 (7-52) U/L Alkaline Phosphatase 97 (34-104) U/L Total Protein 7.9 (6.0-8.3) gm/dl Albumin 3.5 (3.4-5.0) gm/dl Globulin 4.4 H (2.5-4.0) gm/dl Albumin/Globulin Ratio 0.8 L (0.9-2) Lipase 16 (11-82) U/L SARS-CoV-2, RNA, NAAT (NEGATIVE)
--- NOTE | 2022-01-17 10:05 | Anesthesiology Consultation ---
Date of Service January 17, 2022 Assessment & Plan Chart Review Chart Review: Acceptable Risk for Surgery, Patient NOT seen in Pre Admission Testing and charge entry initiated Consults Requested none History Surgery Operation Date: 01/17/22 17:30 Proposed Procedures p Colonoscopy Dr. Agnieszka Aaron MD Height/Weight Height: 5 ft 4 in Weight: 80.4 kg Allergies Allergy/AdvReac Type Severity Reaction Status Date / Time Sulfa (Sulfonamide Allergy Severe RASH, FELT Verified 12/28/19 07:26 Antibiotics) ILL Medications Home Medications Medication Instructions Recorded Confirmed Last Taken atenolol 50 mg tablet 50 mg PO QAM 12/17/19 01/16/22 01/16/22 06:00 cholecalciferol (vitamin D3) 10 10 mcg PO QAM 12/17/19 01/16/22 12/27/19 06:30 mcg (400 unit) capsule (Vitamin D3) lisinopril 40 mg tablet 40 mg PO HS 12/17/19 01/16/22 01/15/22 ascorbic acid (vitamin C) 500 mg 500 mg PO DAILY 01/16/22 01/16/22 Unknown tablet (Vitamin C) ferrous sulfate 325 mg (65 mg 325 mg PO Q OTHER DAY 01/16/22 01/16/22 01/15/22 iron) tablet levothyroxine 112 mcg tablet 112 mcg PO DAILY 01/16/22 01/16/22 01/16/22 06:00 Active Medications Generic Name Dose Route Start Last Admin Trade Name Freq PRN Reason Stop Dose Admin Atenolol 50 mg 01/17/22 09:00 01/17/22 08:22 Atenolol 50 Mg Tablet PO 02/16/22 08:59 50 mg QAM RAJINDER Administration Ferrous Sulfate 325 mg 01/17/22 09:00 01/17/22 08:22 Ferrous Sulfate 325 Mg Tab PO 02/16/22 08:59 325 mg Q48H RAJINDER Administration Piperacillin Sod/Tazobactam 115 mls @ 28.75 mls/hr 01/17/22 02:00 01/17/22 05:21 Sod 3.375 gm/ Dextrose IV 01/27/22 01:59 Infused Q8H RAJINDER Infusion Protocol Lactated Ringer's 1,000 mls @ 60 mls/hr 01/17/22 04:15 01/17/22 05:21 Lr IV 02/16/22 04:14 60 mls/hr .[id number] RAJINDER Administration Levothyroxine Sodium 112 mcg 01/17/22 06:30 01/17/22 05:32 Levothyroxine Sodium 112 Mcg Tablet PO 02/16/22 06:29 112 mcg DAILYBB RAJINDER Administration Past Medical History Medical History Arthritis 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 Hiatal hernia Hypertension Hypothyroidism Migraine HX Past Surgical History Surgical History History of adenoidectomy History of ankle surgery REMOVAL BONE CHIP History of eyelid surgery History of tonsillectomy History of total knee replacement R/L Nausea and vomiting after administration of anesthetic agent Social History Smoking Status: Never smoker Hx Alcohol Use: No Hx Substance Use: No Physical Exam Vital Signs Last Vital Signs Temp 36.6 C 01/17/22 08:03 Pulse 69 01/17/22 08:03 Resp 20 01/17/22 08:03 BP 130/76 01/17/22 08:03 Pulse Ox 97 01/17/22 08:03 O2 Del Method 01/17/22 08:03 Testing Laboratory Results 01/17/22 06:12 01/17/22 06:12 Electrocardiogram Date: 01/17/2217-Jan-2022 05:51:58 [facility]-2 SD ROUTINE RETRIEVAL Sinus rhythm with Premature atrial complexes with Aberrant conduction Left axis deviation Abnormal ECG When compared with ECG of 16-JAN-2022 22:01, (unconfirmed) Borderline criteria for Anterolateral infarct are no longer Present QT has lengthened Chest X-Ray Date: 01/16/22 IMPRESSION: 1. Mild cardiomegaly. No evidence for pulmonary edema. 2. Small patchy density at the left lung base which may represent atelectasis or developing pneumonia. 3. Possible small hiatus hernia. 5. Mild gaseous distention of the visualized bowel within the upper abdomen.
--- NOTE | 2022-01-17 10:32 | Surgery Progress Note ---
Date of Service January 17, 2022 Assessment & Plan (1) Abnormal finding on imaging: Plan: Clinically does not appear to have appendicitis. Normal white count and she has no pain currently despite no treatment. I am concerned she may have a malignancy in her cecum. GI to perform colonoscopy today and will make recommendations accordingly. She may have clear liquids after her colonoscopy but would not advance her diet. Admission and Anticipated Discharge Date Admission Date: January 16, 2022 Subjective Patient seen. She is in the middle of her bowel prep. She denies any abdominal pain at this point in time. Physical Exam Physical Exam: Unable to perform as patient is on the toilet Results & Data ([facility]) Vital Signs (Past 12 Hours) Vital Signs Temp Pulse Pulse Pulse Resp BP Pulse Ox 01/17/22 08:03 36.6 C 69 20 130/76 97 01/17/22 07:03 66 01/17/22 03:00 36.4 C L 61 20 151/79 H 96 01/16/22 23:00 36.6 C 73 16 176/83 H 95 O2 Del Method 01/17/22 08:03 Room Air 01/17/22 07:03 01/17/22 03:00 Room Air 01/16/22 23:00 Room Air PG Care Time/CCT Total # of Minutes Spent Total Time Spent with Patient: Total time spent is greater than 50% in coordination of care (as documented) at patient's floor/unit and/or counseling patient: Coding Level of Care Code 04207 Subseq Hosp Care Lvl 3 Diagnoses Abnormal finding on imaging R93.89
[2022-01-17] MEDS ORDERED: LIDOCAINE 2% MPF LOCAL 5 ML VIAL INFIL ONE (11:09)
[2022-01-17] MEDS ORDERED: PROPOFOL IV EMULSION 10 MG/ML 20 ML VIAL IV ONE (11:09)
[2022-01-17] MEDS ORDERED: ONDANSETRON INJ 2 MG/ML 2 ML VIAL ONE (11:19)
--- NOTE | 2022-01-17 11:21 | History & Physical Bridge Note ---
Date of Service January 17, 2022 History & Physical Bridge Note I have examined the patient, reviewed the History & Physical and in the interval since the performance of the History & Physical I have noted the following changes of clinical significance: no changes noted Supervising Physician Co-Signing Physician Notes Patient with reports of prior abdominal surgery, no reported family history, no metal in her hips/knees/back. PE - hard of hearing, obese abdomen CT thru [facility] reviewed- findings of cecal hernia versus appendiceal inflammation versus cecal mass Seen by surgery already today - their note has been reviewed. Colonoscopy for further evaluation of abnl imaging (CT done yesterday).
--- NOTE | 2022-01-17 12:03 | GI REPORT ---
Patient Name: Rubina Epps Procedure Date: 01/17/2022 11:34 AM Date of : 1940 Admit Type: Inpatient Age: 81 Gender: Female Attending MD: Pham Aaron M.d. Procedure: Colonoscopy Providers: Pham Aaron M.d. Referring MD: Referred Self Indications: Abnormal CT of the GI tract Medicines: See anesthesia record Complications: No immediate complications. Estimated Blood Loss: Estimated blood loss: none. Procedure: Pre-Anesthesia Assessment: - Patient identification and proposed procedure were verified prior to the procedure by the physician, the nurse and the anesthesiologist. The procedure was verified in the pre-procedure area. - Prior to the procedure, a History and Physical was performed, and patient medications, allergies and sensitivities were reviewed. The patient's tolerance of previous anesthesia was reviewed. - The risks and benefits of the procedure and the sedation options and risks were discussed with the patient. All questions were answered and informed consent was obtained. After I obtained informed consent, the scope was passed under direct vision. Throughout the procedure, the patient's blood pressure, pulse, and oxygen saturations were monitored continuously. The scope was introduced through the anus and advanced to the terminal ileum. The patient tolerated the procedure well. The quality of the bowel preparation was fair. The colonoscopy was somewhat difficult due to multiple diverticula in the colon and a redundant colon. Successful completion of the procedure was aided by using manual pressure and straightening and shortening the scope to obtain bowel loop reduction. Findings: The examined terminal ileum appeared normal. The examined colon appeared normal. Scattered small and large-mouthed diverticula were found in the ascending, transverse, descending, and sigmoid colon. Internal hemorrhoids were found during retroflexion. Impression: - Preparation of the colon was fair. - The examined portion of the terminal ileum appeared normal. - The examined colon appeared normal. The appendiceal opening appeared mildly congested. - Diverticulosis in the ascending, transverse, descending, and sigmoid colon. - Internal hemorrhoids. Recommendation: - The prep was fair - extensive lavage was done of the appendiceal orifice and cecum and an adequate look was obtained without findings of an overt mass. ? CT finding from redundant colon tissue. Nolberto Lal M.d. 01/17/2022 12:03:09 PM This report has been signed electronically. Note Initiated On: 01/17/2022 11:34 AM Number of Addenda: 0 I attest to the content of the Intraoperative Record and orders documented therein, exceptions below {[id number]}
--- NOTE | 2022-01-17 12:13 | Communication Note ---
Date of Service: January 17, 2022 Colonoscopy completed today. Fair prep. No overt mass was visualized. Would recommend clear liquids today, additional prep with golytely ordered. NPO after midnight and repeat colonoscopy .
--- NOTE | 2022-01-17 14:32 | Anesthesiology Progress Note ---
Date of Service January 17, 2022 Anesthesia Post Procedure Vital Signs Vital Signs: Temp Pulse Pulse Pulse Resp BP BP 01/17/22 12:30 62 16 138/63 01/17/22 12:15 66 16 136/72 01/17/22 12:00 76 16 167/66 H 01/17/22 10:46 37.3 C 62 16 147/61 H 01/17/22 08:03 36.6 C 69 20 130/76 01/17/22 07:03 66 01/17/22 03:00 36.4 C L 61 20 151/79 H 01/16/22 23:00 36.6 C 73 16 176/83 H 01/16/22 22:14 63 18 146/88 H 01/16/22 22:00 63 18 146/88 H 01/16/22 20:59 66 18 161/80 H 01/16/22 18:40 76 16 162/85 H 01/16/22 16:18 36.4 C L 73 16 175/84 H Pulse Ox O2 Del Method 01/17/22 12:30 96 Room Air 01/17/22 12:15 96 Room Air 01/17/22 12:00 99 Room Air 01/17/22 10:46 97 Room Air 01/17/22 08:03 97 Room Air 01/17/22 07:03 01/17/22 03:00 96 Room Air 01/16/22 23:00 95 Room Air 01/16/22 22:14 97 Room Air 01/16/22 22:00 97 Room Air 01/16/22 20:59 98 Room Air 01/16/22 18:40 95 Room Air 01/16/22 16:18 98 Room Air Pain Intensity Right Lower Abdomen: Pain Intensity: 0 Transfer of Care Handoff Completed per policy Notes Mental Status: alert / awake / arousable and participated in evaluation Patient Amnestic to Procedure: Yes Nausea / Vomiting: adequately controlled Pain: adequately controlled Airway Patency, RR, SpO2: stable & adequate BP & HR: stable & adequate Hydration State: stable & adequate Anesthetic Complications: no major complications apparent and Pt Satisfied with anesthetic care
--- NOTE | 2022-01-17 14:44 | Hospitalist Progress Note ---
Date of Service January 17, 2022 Assessment & Plan (1) Abdominal pain: Plan: Ileocecal abnormalities on CT rule out early appendicitis -question of appendicitis Outpatient CT abdomen pelvis showed : 1. Fat stranding and fluid in the right pelvis around the cecal area, likely sequelae of inflammatory changes. Focal abdominal wall laxity in this region with probable hernia. Focal narrowing of the cecum near the ileocecal junction may be related to incomplete distention or inflammation. Underlying neoplastic process is difficult to exclude. Follow-up colonoscopy recommended after resolution of acute symptoms to exclude any underlying neoplasm. 2. Mildly distended appendix with wall thickening. Early appendicitis cannot be excluded. Surgery consult recommended. No sepsis for now Appreciate general surgery input and recommendation Appreciate GI input and recommendation-Will have colonoscopy to evaluate cecal lesion before any definitive procedure Patient remains asymptomatic Hypertensive urgency secondary to discomfort Blood pressure remains stable IPMN as per records Monoclonal gammopathy, stable as per outpatient Hematology visit this year No acute issues Prediabetes, hemoglobin A1c of 5.9 last 2018 Chronic anemia, hemoglobin better than baseline secondary to hemoconcentration Never has had any colonoscopy Will have colonoscopy today Congenital facial palsy Full code Case discussed with Dr. Mendez of GI. He recommends MiraLAX colonoscopy prep tonight. Patient requests for her nephew to be updated of developments. Mr. Caleb Lea, contact #[phone]. Admission and Anticipated Discharge Date Admission Date: January 16, 2022 Subjective 01/17/2022 Patient was seen and examined in medical telemetry unit She denies to have any more abdominal pain, any nausea and or vomiting and no fever and or chills She will have colonoscopy today Review of Systems Review of Systems: All systems reviewed and are unremarkable except as noted below Gastrointestinal: No abdominal pain nausea and or vomiting Physical Exam Physical Exam: Sitting at the edge of the bed without any acute distress Constitutional: average body habitus; not ill appearing Eyes: PERRL, conjunctivae normal, anicteric sclerae ENMT: external ear and nose normal, oropharynx normal Neck: trachea midline, no thyromegaly Respiratory: no respiratory distress Auscultation: lungs clear to auscultation bilaterally Cardiovascular: Rate/Rhythm: regular rate and regular rhythm; not tachycardic Heart Sounds: normal S1, normal S2 and + murmur Extremities: + edema (Trace edema bilateral) Gastrointestinal (Abdomen): Inspection/Auscultation: normal bowel sounds; abdomen not distended Percussion/Palpation: abdomen soft; abdomen nontender Musculoskeletal: No acute arthritis in any joint Neurologic: Alert, awake and oriented x3. 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 Psychiatric: A+Ox3, euthymic affect Lymphatic: no cervical or axillary lymphadenopathy Results & Data Results & Data ([facility]) Vital Signs (Past 12 Hours) Vital Signs Temp Pulse Pulse Resp BP Pulse Ox O2 Del Method 01/17/22 12:30 62 16 138/63 96 Room Air 01/17/22 12:15 66 16 136/72 96 Room Air 01/17/22 12:00 76 16 167/66 H 99 Room Air 01/17/22 10:46 37.3 C 62 16 147/61 H 97 Room Air 01/17/22 08:03 36.6 C 69 20 130/76 97 Room Air 01/17/22 07:03 66 01/17/22 03:00 36.4 C L 61 20 151/79 H 96 Room Air Laboratory Results Short CBC 01/16/22 01/17/22 Range/Units 16:51 06:12 WBC 8.71 7.20 (4.8-10.8) K/ul Hgb 11.9 L 11.7 L (12.0-16.0) g/dl Hct 35.3 34.9 (34.1-44.9) % Plt Count 281 274 (130-400) K/uL [facility] 01/16/22 01/17/22 16:51 06:12 Sodium 132 L 133 L Potassium 3.7 3.5 Chloride 100 101 Carbon Dioxide 23 23 BUN 11 10 Creatinine 0.57 L 0.60 Glucose 81 92 Calcium 9.3 9.0 Liver Function 01/16/22 Range/Units 16:51 Total Bilirubin 1.4 H (0.2-1.0) mg/dl AST 23 (13-39) U/L ALT 16 (7-52) U/L Alkaline Phosphatase 97 (34-104) U/L Albumin 3.5 (3.4-5.0) gm/dl Medications Administered Current Inpatient Medications Acetaminophen (Acetaminophen 325 Mg Tab) 650 mg PO Q6H PRN PRN Reason: Fever/pain Stop: 02/15/22 21:01 Atenolol (Atenolol 50 Mg Tablet) 50 mg PO QAM [facility] Stop: 02/16/22 08:59 Last Admin: 01/17/22 08:22 Dose: 50 mg Ferrous Sulfate (Ferrous Sulfate 325 Mg Tab) 325 mg PO Q48H [facility] Stop: 02/16/22 08:59 Last Admin: 01/17/22 08:22 Dose: 325 mg Promethazine HCl 12.5 mg/ (Sodium Chloride) 50.5 mls @ 202 mls/hr IV Q6H PRN PRN Reason: Nausea And Vomiting Stop: 02/15/22 21:01 Piperacillin Sod/Tazobactam (Sod 3.375 gm/ Dextrose) 115 mls @ 28.75 mls/hr IV Q8H [facility]; Protocol Stop: 01/27/22 01:59 Last Admin: 01/17/22 12:53 Dose: 28.8 mls/hr Lactated Ringer's (Lr) 1,000 mls @ 60 mls/hr IV .[id number] [facility] Stop: 02/16/22 04:14 Last Admin: 01/17/22 05:21 Dose: 60 mls/hr Levothyroxine Sodium (Levothyroxine Sodium 112 Mcg Tablet) 112 mcg PO DAILYBB [facility] Stop: 02/16/22 06:29 Last Admin: 01/17/22 05:32 Dose: 112 mcg Lisinopril (Lisinopril 40 Mg Tab) 40 mg PO HS [facility] Stop: 02/16/22 20:59 Lorazepam (Lorazepam 0.5 Mg Tab) 0.25 mg PO TID PRN PRN Reason: Anxiety Stop: 02/15/22 21:01 Morphine Sulfate (Morphine Sulfate 2 Mg/Ml Carp) 2 mg IV Q3H PRN PRN Reason: Pain Stop: 01/30/22 21:01 Oxycodone HCl (Oxycodone Hcl Ir 5 Mg Tab (Immediate Release)) 5 mg PO Q4H PRN PRN Reason: Pain Stop: 01/30/22 21:01 Polyethylene Glycol/Electrolytes (Lavage Solution 4000ml) 16 dose PO TODAY@1730 [facility] Stop: 02/16/22 17:29 (1) Abdominal pain Abdominal location: right lower quadrant Qualified Code(s): R10.31 - Right lower quadrant pain
[2022-01-17] MEDS ORDERED: LAVAGE SOLUTION 4000ML PO SCH (17:30)
[2022-01-17] MEDS ORDERED: lisinopril 40 MG TAB PO SCH (21:00)
[2022-01-18] MEDS: PIPERACILLIN/TAZOBACTAM 3.375 GM in DEXTROSE 5% 100 ML IV SCH ×2 (05:00→12:16)
--- NOTE | 2022-01-18 05:16 | Electrocardiogram Report ---
Test Reason : Blood Pressure : / mmHG Vent. Rate : 056 BPM Atrial Rate : 056 BPM P-R Int : 148 ms QRS Dur : 096 ms QT Int : 402 ms P-R-T Axes : 028 -32 041 degrees QTc Int : 387 ms Sinus bradycardia with Premature atrial complexes Left axis deviation Poor R wave progression, consider anterior [place] vs. lead placement vs. LVH Abnormal ECG No previous ECGs available Confirmed by Piero Malik ([id number]) on 01/18/2022 5:15:32 AM Referred By: REFERRED SELF Confirmed By:Piero Malik
--- NOTE | 2022-01-18 05:27 | Electrocardiogram Report ---
Test Reason : Blood Pressure : / mmHG Vent. Rate : 077 BPM Atrial Rate : 077 BPM P-R Int : 148 ms QRS Dur : 100 ms QT Int : 412 ms P-R-T Axes : 040 -34 036 degrees QTc Int : 466 ms Sinus rhythm with Premature atrial complexes and Premature ventricular complexes Poor R wave progression, consider anterior [place] vs. lead placement vs. LVH Left axis deviation Abnormal ECG When compared with ECG of 16-JAN-2022 22:01, QT has lengthened Premature ventricular complexes are now Present Confirmed by Piero Malik ([id number]) on 01/18/2022 5:26:45 AM Referred By: REFERRED SELF Confirmed By:Piero Malik
[2022-01-18] MEDS: LEVOTHYROXINE SODIUM 112 MCG TABLET PO SCH (06:15)
[2022-01-18 07:28] LABS: Basophils # (auto) 0.04 K/uL (0-0.2); Basophils % (auto) 0.8 %; Eosinophils # (auto) 0.19 K/uL (0-0.50); Eosinophils % (auto) 3.7 %; Hematocrit (blood only) 30.8 % (34.1-44.9); Hemoglobin 10.5 g/dl (12.0-16.0); Immature Granulocytes # (auto) 0.03 K/uL (0.00-0.02); Immature Granulocytes % (auto) 0.6 %; Lymphocytes # (auto) 0.56 K/uL (1.2-3.4); Lymphocytes % (auto) 10.8 %; Mean Corpuscular Hgb Conc 34.1 g/dL (32.0-36.0); Mean Corpuscular Volume 96.9 fL (80.0-100.0); Monocytes # (auto) 0.67 K/uL (0.24-0.82); Neutrophils # (auto) 3.68 K/uL (1.4-6.5); Neutrophils % (auto) 71.1 %; Platelet Count 242 K/uL (130-400); RDW Coefficient of Variation 13.2 % (11.5-14.5); RDW Standard Deviation 47.1 fL (36.4-46.3); Red Blood Count 3.18 M/uL (3.93-5.22); White Blood Count 5.17 K/ul (4.8-10.8)
[2022-01-18 08:15] LABS: Albumin Globulin Ratio 0.9 (0.9-2); Albumin Level 3.1 gm/dl (3.4-5.0); Bilirubin,Total 0.9 mg/dl (0.2-1.0); Calcium 8.3 mg/dl (8.5-10.1); Creatinine Clr Calc Pharmacy 87.2 ml/min; Est GFR (African American) 103.7 ml/min; Est GFR (Non-African American) 89.5 ml/min; Globulin 3.3 gm/dl (2.5-4.0); Potassium 3.5 mmol/L (3.5-5.1); Total Protein 6.4 gm/dl (6.0-8.3)
--- NOTE | 2022-01-18 08:58 | History & Physical Report ---
Date of Service January 18, 2022 Assessment & Plan Admission and Anticipated Discharge Date Admission Date: January 16, 2022 History of Present Illness Chief Complaint: abnormal imaging Primary Care Provider: Gloria Monroy MD Patient presented with rlq pain that has resolved. Had an outpt ct scan showing a rlq hernia versus appendictis versus cecal mass. Attempted colonoscopy yesterday fair prep. Repeat colonoscopy today after additional prep yesterday. She has mild rlq pain prior to the procedure that she said started this am. Allergies Allergy/AdvReac Type Severity Reaction Status Date / Time Sulfa (Sulfonamide Allergy Severe RASH, FELT Verified 01/18/22 08:26 Antibiotics) ILL Home Medications Medication Instructions Recorded Confirmed Type atenolol 50 mg tablet 50 mg PO QAM 12/17/19 01/16/22 History cholecalciferol (vitamin D3) 10 10 mcg PO QAM 12/17/19 01/16/22 History mcg (400 unit) capsule (Vitamin D3) lisinopril 40 mg tablet 40 mg PO HS 12/17/19 01/16/22 History ascorbic acid (vitamin C) 500 mg 500 mg PO DAILY 01/16/22 01/16/22 History tablet (Vitamin C) ferrous sulfate 325 mg (65 mg 325 mg PO Q OTHER DAY 01/16/22 01/16/22 History iron) tablet levothyroxine 112 mcg tablet 112 mcg PO DAILY 01/16/22 01/16/22 History Past Med/Surg History Medical History Arthritis 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 Hiatal hernia Hypertension Hypothyroidism Migraine HX Surgical History History of adenoidectomy History of ankle surgery REMOVAL BONE CHIP History of eyelid surgery History of tonsillectomy History of total knee replacement R/L Nausea and vomiting after administration of anesthetic agent Social History Smoking Status: Never smoker Second Hand Exposure: Yes ( A CHILD); Hx Alcohol Use: No Hx Substance Use: No Preferred Language: Tajik Communication Ability: Effective Welfare Officer Required: No Beliefs That Will Affect Care: None Current Living Situation: Alone Other Information That Helps Us Care for You: No Feels Safe at Home: Yes Safety Concerns: Feels Safe At This Time Assistive Devices: Cane Review of Systems All systems reviewed & are unremarkable except as noted in HPI & below Physical Exam Physical Exam: Elderly female in nad Eyes: Slightly tearing right eye Respiratory: normal respiratory effort, lungs clear to auscultation Gastrointestinal (Abdomen): Soft nt nd Results & Data ([facility]) Vital Signs (Past 12 Hours) Vital Signs Temp Pulse Pulse Resp BP Pulse Ox O2 Del Method 01/18/22 08:27 36.8 C 74 18 162/69 H 100 Room Air 01/18/22 07:22 36.8 C 66 18 131/75 96 Room Air 01/18/22 07:06 52 L 01/18/22 03:00 36.8 C 70 20 128/79 97 Room Air 01/17/22 22:14 64 01/17/22 22:00 36.3 C L 65 20 169/80 H 97 Room Air Laboratory Results All labs/imaging have been reviewed Code Status & VTE Plan VTE Prophylaxis Plan VTE Prophylaxis will be ordered: Yes Supervising Physician Co-Signing Physician Notes Colonoscopy for evaluation of abnl imaging after additional prep yesterday.
[2022-01-18] MEDS ORDERED: PROPOFOL IV EMULSION 10 MG/ML 20 ML VIAL IV ONE (09:29)
[2022-01-18] MEDS ORDERED: LIDOCAINE 2% MPF LOCAL 5 ML VIAL INFIL ONE (09:29)
[2022-01-18] MEDS ORDERED: ePHEDrine sulfate 50 MG/ML AMP ONE (09:29)
--- NOTE | 2022-01-18 09:37 | GI REPORT ---
Patient Name: Rubina Epps Procedure Date: 01/18/2022 9:09 AM Date of : 1940 Admit Type: Inpatient Age: 81 Gender: Female Attending MD: Pham Aaron M.d. Procedure: Colonoscopy Providers: Pham Aaron M.d. Referring MD: Suly Porras Indications: Abnormal CT of the GI tract Medicines: See anesthesia record Complications: No immediate complications. Estimated Blood Loss: Estimated blood loss: none. Procedure: Pre-Anesthesia Assessment: - Patient identification and proposed procedure were verified prior to the procedure by the physician, the nurse and the anesthesiologist. The procedure was verified in the pre-procedure area. - Prior to the procedure, a History and Physical was performed, and patient medications, allergies and sensitivities were reviewed. The patient's tolerance of previous anesthesia was reviewed. - The risks and benefits of the procedure and the sedation options and risks were discussed with the patient. All questions were answered and informed consent was obtained. After I obtained informed consent, the scope was passed under direct vision. Throughout the procedure, the patient's blood pressure, pulse, and oxygen saturations were monitored continuously. The scope was introduced through the anus and advanced to the terminal ileum. The colonoscopy was performed without difficulty. The patient tolerated the procedure well. The quality of the bowel preparation was adequate to identify polyps 6 mm and larger in size. Findings: The examined terminal ileum appeared normal. The examined colon appeared normal. A localized area of mildly nodular mucosa was found at the appendiceal orifice - given the ct findings - biopsies were taken with a cold forceps for histology. The pathology specimen was placed into Bottle A. Multiple small and large-mouthed diverticula were found in the ascending, transverse, descending, and sigmoid colon. A 12 mm polyp was found in the rectum. The polyp was sessile and was removed with a hot snare. Resection and retrieval were complete. The pathology specimen was placed into Bottle B. Verification of patient identification for the specimen was done by the physician and nurse using the patient's name and medical record number. Internal hemorrhoids were found during retroflexion. Impression: - The examined portion of the ileum was normal. - The examined colon appearednormal. - Nodular mucosa at the appendiceal orifice. Biopsied. - Diverticulosis in the ascending, transverse, descending, and sigmoid colon. - One 12 mm polyp in the rectum, removed with a hot snare. Resected and retrieved. - Internal hemorrhoids. Recommendation: - Await pathology results. - Return to the floor. Nolberto Lal M.d. 01/18/2022 9:37:06 AM This report has been signed electronically. Note Initiated On: 01/18/2022 9:09 AM Number of Addenda: 0 I attest to the content of the Intraoperative Record and orders documented therein, exceptions below {[id number]}
--- NOTE | 2022-01-18 09:44 | Communication Note ---
Date of Service: January 18, 2022 Colonoscopy completed today with improved prep. Appendiceal orifice prominence - biopsied. Syed-colonic diverticulosis. Rectal polyp - hot snared. Defer to surgery on any surgical intervention. Path results will be mailed to her from above.
[2022-01-18] MEDS: ATENOLOL 50 MG TABLET PO SCH (10:43)
--- NOTE | 2022-01-18 13:11 | Hospitalist Progress Note ---
Date of Service January 18, 2022 Assessment & Plan (1) Abdominal pain: Plan: Ileocecal abnormalities on CT rule out early appendicitis -question of appendicitis Outpatient CT abdomen pelvis showed : 1. Fat stranding and fluid in the right pelvis around the cecal area, likely sequelae of inflammatory changes. Focal abdominal wall laxity in this region with probable hernia. Focal narrowing of the cecum near the ileocecal junction may be related to incomplete distention or inflammation. Underlying neoplastic process is difficult to exclude. Follow-up colonoscopy recommended after resolution of acute symptoms to exclude any underlying neoplasm. 2. Mildly distended appendix with wall thickening. Early appendicitis cannot be excluded. Surgery consult recommended. No sepsis for now Appreciate general surgery input and recommendation Appreciate GI input and recommendation-Will have colonoscopy to evaluate cecal lesion before any definitive procedure Patient remains asymptomatic Status post colonoscopy on 01/17/2022: The preparation of the colon was fair the examined colon appeared normal, the appendiceal opening appeared mildly congested, and no overt mass identified and it was planned for a repeat colonoscopy on 01/18/2022 Status post repeat colonoscopy on 01/18/2022: The examined portion of the ileum was normal, examined colon appeared normal, nodular mucosa at the appendiceal orifice which was biopsied, diverticulosis, one 12 mm polyp in the rectum that was removed and internal hemorrhoids are noted. Await pathology Further management as per surgery-surgery recommended home and will have a follow-up to the pathology report is out Hypertensive urgency secondary to discomfort Blood pressure remains stable IPMN as per records Monoclonal gammopathy, stable as per outpatient Hematology visit this year No acute issues Prediabetes, hemoglobin A1c of 5.9 last 2018 Chronic anemia, hemoglobin better than baseline secondary to hemoconcentration Never has had any colonoscopy Will have colonoscopy today Congenital facial palsy Full code Case discussed with Dr. Mendez of GI. He recommends MiraLAX colonoscopy prep tonight. Patient requests for her nephew to be updated of developments. Mr. Caleb Lea, contact #[phone]. Will be discharged home this afternoon if tolerating regular diet Admission and Anticipated Discharge Date Admission Date: January 16, 2022 Subjective 01/17/2022 Patient was seen and examined in medical telemetry unit She denies to have any more abdominal pain, any nausea and or vomiting and no fever and or chills She will have colonoscopy today 01/18/2022 The patient was seen and examined in medical telemetry unit She is back from colonoscopy Denies any more abdominal pain, nausea no vomiting She wants to go home Review of Systems Review of Systems: All systems reviewed and are unremarkable except as noted below Gastrointestinal: No abdominal pain nausea and or vomiting Physical Exam Physical Exam: Sitting at the edge of the bed without any acute distress Constitutional: average body habitus; not ill appearing Eyes: PERRL, conjunctivae normal, anicteric sclerae ENMT: external ear and nose normal, oropharynx normal Neck: trachea midline, no thyromegaly Respiratory: no respiratory distress Auscultation: lungs clear to auscultation bilaterally Cardiovascular: Rate/Rhythm: regular rate and regular rhythm; not tachycardic Heart Sounds: normal S1, normal S2 and + murmur Extremities: + edema (Trace edema bilateral) Gastrointestinal (Abdomen): Inspection/Auscultation: normal bowel sounds; abdomen not distended Percussion/Palpation: abdomen soft; abdomen nontender Musculoskeletal: No acute arthritis involving any joint Neurologic: Alert, awake and oriented x3. No focal sensory and motor deficit appreciated Psychiatric: A+Ox3, euthymic affect Lymphatic: no cervical or axillary lymphadenopathy Results & Data Results & Data ([facility]) Vital Signs (Past 12 Hours) Vital Signs Temp Pulse Pulse Resp BP Pulse Ox O2 Del Method 01/18/22 10:45 36.4 C L 100 H 18 136/74 96 Room Air 01/18/22 10:09 90 18 131/82 97 Room Air 01/18/22 09:54 95 H 18 138/67 100 Room Air 01/18/22 09:39 86 18 113/53 L 100 Room Air 01/18/22 08:27 36.8 C 74 18 162/69 H 100 Room Air 01/18/22 07:22 36.8 C 66 18 131/75 96 Room Air 01/18/22 07:06 52 L 01/18/22 03:00 36.8 C 70 20 128/79 97 Room Air Laboratory Results Short CBC 01/18/22 Range/Units 06:50 WBC 5.17 (4.8-10.8) K/ul Hgb 10.5 L (12.0-16.0) g/dl Hct 30.8 L (34.1-44.9) % Plt Count 242 (130-400) K/uL BMP 01/18/22 06:50 Sodium 136 Potassium 3.5 Chloride 105 Carbon Dioxide 22 BUN 7 Creatinine 0.50 L Glucose 86 Calcium 8.3 L Liver Function 01/18/22 Range/Units 06:50 Total Bilirubin 0.9 D (0.2-1.0) mg/dl AST 27 (13-39) U/L ALT 16 (7-52) U/L Alkaline Phosphatase 80 (34-104) U/L Albumin 3.1 L (3.4-5.0) gm/dl Medications Administered Current Inpatient Medications Acetaminophen (Acetaminophen 325 Mg Tab) 650 mg PO Q6H PRN PRN Reason: Fever/pain Stop: 02/15/22 21:01 Atenolol (Atenolol 50 Mg Tablet) 50 mg PO QAM [facility] Stop: 02/16/22 08:59 Last Admin: 01/18/22 10:43 Dose: 50 mg Ferrous Sulfate (Ferrous Sulfate 325 Mg Tab) 325 mg PO Q48H [facility] Stop: 02/16/22 08:59 Last Admin: 01/17/22 08:22 Dose: 325 mg Promethazine HCl 12.5 mg/ (Sodium Chloride) 50.5 mls @ 202 mls/hr IV Q6H PRN PRN Reason: Nausea And Vomiting Stop: 02/15/22 21:01 Piperacillin Sod/Tazobactam (Sod 3.375 gm/ Dextrose) 115 mls @ 28.75 mls/hr IV Q8H [facility]; Protocol Stop: 01/27/22 01:59 Last Admin: 01/18/22 12:16 Dose: 28.8 mls/hr Levothyroxine Sodium (Levothyroxine Sodium 112 Mcg Tablet) 112 mcg PO DAILYBB [facility] Stop: 02/16/22 06:29 Last Admin: 01/18/22 06:15 Dose: 112 mcg Lisinopril (Lisinopril 40 Mg Tab) 40 mg PO HS [facility] Stop: 02/16/22 20:59 Last Admin: 01/17/22 20:43 Dose: 40 mg Lorazepam (Lorazepam 0.5 Mg Tab) 0.25 mg PO TID PRN PRN Reason: Anxiety Stop: 02/15/22 21:01 Morphine Sulfate (Morphine Sulfate 2 Mg/Ml Carp) 2 mg IV Q3H PRN PRN Reason: Pain Stop: 01/30/22 21:01 Oxycodone HCl (Oxycodone Hcl Ir 5 Mg Tab (Immediate Release)) 5 mg PO Q4H PRN PRN Reason: Pain Stop: 01/30/22 21:01 Polyethylene Glycol/Electrolytes (Lavage Solution 4000ml) 16 dose PO TODAY@1730 [facility] Stop: 02/16/22 17:29 Last Admin: 01/17/22 17:55 Dose: 16 dose (1) Abdominal pain Abdominal location: right lower quadrant Qualified Code(s): R10.31 - Right lower quadrant pain
--- NOTE | 2022-01-18 13:49 | Anesthesiology Progress Note ---
Date of Service January 18, 2022 Anesthesia Post Procedure Vital Signs Vital Signs: Temp Pulse Pulse Resp BP BP Pulse Ox 01/18/22 10:45 36.4 C L 100 H 18 136/74 96 01/18/22 10:09 90 18 131/82 97 01/18/22 09:54 95 H 18 138/67 100 01/18/22 09:39 86 18 113/53 L 100 01/18/22 08:27 36.8 C 74 18 162/69 H 100 01/18/22 07:22 36.8 C 66 18 131/75 96 01/18/22 07:06 52 L 01/18/22 03:00 36.8 C 70 20 128/79 97 01/17/22 22:14 64 01/17/22 22:00 36.3 C L 65 20 169/80 H 97 01/17/22 19:01 36.8 C 61 20 143/85 H 100 01/17/22 16:53 36.5 C 88 20 133/75 96 01/17/22 15:02 61 O2 Del Method 01/18/22 10:45 Room Air 01/18/22 10:09 Room Air 01/18/22 09:54 Room Air 01/18/22 09:39 Room Air 01/18/22 08:27 Room Air 01/18/22 07:22 Room Air 01/18/22 07:06 01/18/22 03:00 Room Air 01/17/22 22:14 01/17/22 22:00 Room Air 01/17/22 19:01 Room Air 01/17/22 16:53 01/17/22 15:02 Pain Intensity Right Lower Abdomen: Pain Intensity: 0 Transfer of Care Handoff Completed per policy Notes Mental Status: alert / awake / arousable and participated in evaluation Patient Amnestic to Procedure: Yes Nausea / Vomiting: adequately controlled Pain: adequately controlled Airway Patency, RR, SpO2: stable & adequate BP & HR: stable & adequate Hydration State: stable & adequate Anesthetic Complications: no major complications apparent and Pt Satisfied with anesthetic care
--- NOTE | 2022-01-18 16:16 | Surgery Progress Note ---
Date of Service January 18, 2022 Assessment & Plan (1) Abnormal finding on imaging: Plan: I reviewed the images from today's colonoscopy. I do suspect that this is some sort of malignancy. Since she is asymptomatic I would recommend letting her eat and be discharged. I can follow-up with her mid next week and review the pathology report and plan her surgery. It could be a simple laparoscopic appendectomy as an outpatient versus a more formal right hemicolectomy. Again since she is asymptomatic I think it would be best to wait until the pathology report from today's biopsy. Patient is agreeable. I spoke with primary service regarding our plans. Admission and Anticipated Discharge Date Admission Date: January 16, 2022 Subjective Patient seen. Overall feeling well with no abdominal pain. She has no nausea. She is tolerating clear liquids. She would like to go home. Physical Exam Constitutional: WD/WN, vitals as above no acute distress and not ill appearing Eyes: PERRL, conjunctivae normal, anicteric sclerae EOM intact bilaterally ENMT: external ear and nose normal, oropharynx normal Ears: no hearing impairment Neck: trachea midline, no thyromegaly Respiratory: normal respiratory effort; no respiratory distress and does not use accessory muscles Cardiovascular: Rate/Rhythm: regular rate and regular rhythm Gastrointestinal (Abdomen): Soft. Nontender. Nondistended Skin: no rashes, warm and dry Psychiatric: Orientation: alert, oriented x 3 and cooperative Results & Data ([facility]) Vital Signs (Past 12 Hours) Vital Signs Temp Pulse Pulse Resp BP BP Pulse Ox 01/18/22 15:31 56 L 01/18/22 15:09 36.3 C L 65 18 106/69 97 01/18/22 10:45 36.4 C L 100 H 18 136/74 96 01/18/22 10:09 90 18 131/82 97 01/18/22 09:54 95 H 18 138/67 100 01/18/22 09:39 86 18 113/53 L 100 01/18/22 08:27 36.8 C 74 18 162/69 H 100 01/18/22 07:22 36.8 C 66 18 131/75 96 01/18/22 07:06 52 L O2 Del Method 01/18/22 15:31 01/18/22 15:09 Room Air 01/18/22 10:45 Room Air 01/18/22 10:09 Room Air 01/18/22 09:54 Room Air 01/18/22 09:39 Room Air 01/18/22 08:27 Room Air 01/18/22 07:22 Room Air 01/18/22 07:06 PG Care Time/CCT Total # of Minutes Spent Total Time Spent with Patient: Total time spent is greater than 50% in coordination of care (as documented) at patient's floor/unit and/or counseling patient: Coding Level of Care Code 78309 Subseq Hosp Care Lvl 3 Diagnoses Abnormal finding on imaging R93.89
[2022-01-18] MEDS ORDERED: AMOXICILLIN/CLAVULANATE 500 MG TAB PO ONE (17:45)
--- NOTE | 2022-01-19 07:43 | Discharge Summary ---
Date of Service January 19, 2022 Admission HPI Per Admitting Provider Chief Complaint: Abdominal pain, abnormal CAT scan Primary Care Provider: Gloria Monroy MD History obtained from patient, family, and records. Medical history significant for hypertension, IPMN as per records, monoclonal gammopathy, prediabetes, chronic anemia (baseline hemoglobin 10-11), congenital facial palsy. 6 days history of sudden onset achy right lower quadrant pain without nausea, vomiting, fever, chills. Voluntary weight loss by increased exercise. No recollection of recent trauma. No prior episodes. Patient seen at PCPs office today. Outpatient CT abdomen pelvis showed : 1. Fat stranding and fluid in the right pelvis around the cecal area, likely sequelae of inflammatory changes. Focal abdominal wall laxity in this region with probable hernia. Focal narrowing of the cecum near the ileocecal junction may be related to incomplete distention or inflammation. Underlying neoplastic process is difficult to exclude. Follow-up colonoscopy recommended after resolution of acute symptoms to exclude any underlying neoplasm. 2. Mildly distended appendix with wall thickening. Early appendicitis cannot be excluded. Surgery consult recommended. Patient directed to ER for evaluation. IV Zosyn administered at the ER. Admission Exam Per Admitting Provider Physical Exam: GENERAL: Comfortable, slightly anxious, pleasant, slightly hard of hearing, no respiratory distress SKIN: Normal color, warm HEENT: [place] palpebral conjunctivae, no ptosis, chronic facial palsy right, dry buccal mucosa NECK : Supple, no tenderness CHEST : CTA, no tenderness HEART : RRR, some ectopic beats, no obvious murmurs ABDOMEN: Some distention, RLQ tenderness EXTREMITIES : Minimal LE swelling, no LE tenderness, no other conspicuous deformities noted NEUROLOGIC : Coherent, chronic facial asymmetry, no other gross focality Principal Diagnosis Abdominal pain, Caecal lesion, hypertension, chronic anemia Discharge Exam Sitting at the edge of the bed without any acute distress Constitutional average body habitus; not ill appearing Eyes PERRL, conjunctivae normal, anicteric sclerae ENMT external ear and nose normal, oropharynx normal Neck trachea midline, no thyromegaly Respiratory no respiratory distress Auscultation: lungs clear to auscultation bilaterally Cardiovascular Rate/Rhythm: regular rate and regular rhythm; not tachycardic Heart Sounds: normal S1, normal S2 and + murmur Extremities: + edema (Trace edema bilateral) Gastrointestinal (Abdomen) Inspection/Auscultation: normal bowel sounds; abdomen not distended Percussion/Palpation: abdomen soft; abdomen nontender Psychiatric A+Ox3, euthymic affect Lymphatic no cervical or axillary lymphadenopathy Discharge Data Allergies Allergy/AdvReac Type Severity Reaction Status Date / Time Sulfa (Sulfonamide Allergy Severe RASH, FELT Verified 01/18/22 08:26 Antibiotics) ILL Consultations 01/16/22 19:46 ED Decision to Admit Stat 01/16/22 19:47 Consult General Surgery Routine 01/16/22 22:56 Consult Gastroenterology Routine Procedures Performed Operation Date: 01/17/22 17:30 Actual Procedures p Colonoscopy - Pham Aaron MD Operation Date: 01/18/22 16:15 Actual Procedures p Colonoscopy Polypectomy - Pham Aaron MD s Colonoscopy Biopsy Cytology - Pham Aaron MD Hospital Course (1) Abdominal pain: Ileocecal abnormalities on CT rule out early appendicitis -question of appendicitis Outpatient CT abdomen pelvis showed : 1. Fat stranding and fluid in the right pelvis around the cecal area, likely sequelae of inflammatory changes. Focal abdominal wall laxity in this region with probable hernia. Focal narrowing of the cecum near the ileocecal junction may be related to incomplete distention or inflammation. Underlying neoplastic process is difficult to exclude. Follow-up colonoscopy recommended after resolution of acute symptoms to exclude any underlying neoplasm. 2. Mildly distended appendix with wall thickening. Early appendicitis cannot be excluded. Surgery consult recommended. No sepsis for now Appreciate general surgery input and recommendation Appreciate GI input and recommendation-Will have colonoscopy to evaluate cecal lesion before any definitive procedure Patient remains asymptomatic Status post colonoscopy on 01/17/2022: The preparation of the colon was fair the examined colon appeared normal, the appendiceal opening appeared mildly congested, and no overt mass identified and it was planned for a repeat colonoscopy on 01/18/2022 Status post repeat colonoscopy on 01/18/2022: The examined portion of the ileum was normal, examined colon appeared normal, nodular mucosa at the appendiceal orifice which was biopsied, diverticulosis, one 12 mm polyp in the rectum that was removed and internal hemorrhoids are noted. Await pathology Further management as per surgery-surgery recommended home and will have a follow-up to the pathology report is out Hypertensive urgency secondary to discomfort Blood pressure remains stable IPMN as per records Monoclonal gammopathy, stable as per outpatient Hematology visit this year No acute issues Prediabetes, hemoglobin A1c of 5.9 last 2018 Chronic anemia, hemoglobin better than baseline secondary to hemoconcentration Never has had any colonoscopy Will have colonoscopy today Congenital facial palsy Full code Case discussed with Dr. Mendez of GI. He recommends MiraLAX colonoscopy prep tonight. Patient requests for her nephew to be updated of developments. Mr. Caleb Lea, contact #[phone]. Will be discharged home this afternoon if tolerating regular diet Total Time Total Time Spent Total Time Spent (In Minutes): 35 minutes Discharge Plan Discharge Items Patient Disposition: Home - Self-Care Reason For Visit: HTN URG, POSS APPENDICITIS Discharge Diagnosis: Abdominal pain, Caecal lesion, hypertension, chronic anemia Condition on Discharge: Fair Activity: Resume your previous activity Non-emergency contact: Primary Care Provider Call non-emergency contact if: you have any medication questions and your symptoms worsen Follow-up/Referrals: Angel Dickson, [Surgeon] - (Our office will call you to schedule an appointment with the surgeon Dr. Dickson early next week. If you have not heard from them in the next few days please call our office to inquire for an appointment) Gloria Monroy MD [Primary Care Provider] - (Your doctor's office will call with an appointment within 7 days) Diet: Heart Healthy Addtl Attending Provider Instructions: Please take precaution to avoid falls Keep appointment with your healthcare providers Pending Studies at Discharge: Yes Studies:: Pathology Stand-Alone Forms: My [employer], Smoking Cessation Medications and DC Order Prescriptions: New amoxicillin-pot clavulanate [Augmentin] 500-125 mg tablet 1 tab PO Q12H Qty: 14 0RF Continued lisinopril 40 mg Tablet 40 mg PO HS atenolol 50 mg Tablet 50 mg PO QAM cholecalciferol (vitamin D3) [Vitamin D3] 10 mcg (400 unit) Capsule 10 mcg PO QAM ascorbic acid (vitamin C) [Vitamin C] 500 mg Tablet 500 mg PO DAILY ferrous sulfate 325 mg (65 mg iron) Tablet 325 mg PO Q OTHER DAY levothyroxine 112 mcg tablet 112 mcg PO DAILY Discharge Orders: Discharge Order (Routine); Ordered 01/18/22 Ordered By: Suly Porras Admission Data Admit Date/Time: 01/16/22 21:00 Attending Provider: Suly Porras Admit Provider: Nacho Moreno Primary Care Provider: Gloria Monroy Other Providers: Nacho Moreno ; Angel Dickson ; Channing Mendez Other Interventions: Discharge Summary Assessment (RN) Last Done: 01/18/22 17:16
== END 2022-01-18 19:10 | disposition home or self-care (01) | DRG 394 ==
LOC: ED 16:06 → 2N 21:00